=== PATIENT | female | born 1955 | race Caucasian/White ===

== ENCOUNTER 2021-12-10 11:55 | Emergency (ER) | payer SELFPAY ==
[~2021-12-10] VITALS: Ht 180.3 cm; Wt 82.0 kg
[2021-12-10] MEDS ORDERED: CYCL-837 PO (16:10)
[2021-12-10] MEDS ORDERED: NAP500T PO (16:10)
[2021-12-10] MEDS ORDERED: KETOROLAC TROMETH 60MG/2ML VIAL IM ONE (16:15)
[2021-12-10 16:58] VITALS: BP 122/81
== END 2021-12-10 17:04 | disposition home or self-care (01) ==
LOC: ER 11:55
DX: M54.31 Sciatica, right side (principal); F12.10 Cannabis abuse, uncomplicated; I10 Essential (primary) hypertension; Z88.6 Allergy status to analgesic agent; Z88.8 Allergy status to other drugs, medicaments and biological substances; Z90.89 Acquired absence of other organs; Z90.710 Acquired absence of both cervix and uterus
CPT/HCPCS: 81002; 96372; 99283; J1885